=== PATIENT | female | born 1990 | race Caucasian/White ===

== ENCOUNTER 2016-11-15 18:38 | Emergency (ER) | payer OTHER ==
[2016-11-15 18:52] VITALS: BP 133/93; PULSE 74; RESP 17; TEMP 98.2; O2SAT 93
[2016-11-15] MEDS ORDERED: AZITHROMYCIN 250 MG TAB PO ONE (20:34)
[2016-11-15] MEDS ORDERED: CEFTRIAXONE IM 350 MG/ML SYRINGE IM ONE (20:34)
[2016-11-15] MEDS ORDERED: ONDANSETRON DISINTEGRATING 4 MG TAB PO ONE (20:34)
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
== END 2016-11-15 23:20 | disposition home or self-care (01) ==
LOC: EEVIPCON 18:38
DX: T76.21XA Adult sexual abuse, suspected, initial encounter (principal)
CPT/HCPCS: J0696